=== PATIENT | female | born 1990 | race Caucasian/White ===

== ENCOUNTER 2017-08-04 06:10 | Inpatient (IN) | payer BC ==
[2017-08-04] MEDS ORDERED: LIDOCAINE 1% (PF) 10 MG/ML (30 ML SDV) SQ PRN (06:21)
[2017-08-04] MEDS ORDERED: METHYLERGONOVINE 0.2 MG/ML 1 ML AMP IM PRN (06:21)
[2017-08-04] MEDS ORDERED: CARBOPROST TROMETHAMINE 250 MCG/ML 1 ML AMP IM PRN (06:21)
[2017-08-04] MEDS ORDERED: OXYTOCIN 10 UNIT/ML 1 ML VIAL IM PRN (06:21)
[2017-08-04] MEDS ORDERED: TERBUTALINE 1 MG/ML VIAL SQ PRN (06:21)
[2017-08-04] MEDS: LACTATED RINGERS 1,000 ML IV SCH ×2 (06:23→10:36)
[2017-08-04] MEDS ORDERED: OXYTOCIN 20 UNITS/1000 ML NS 1,000 ML IV SCH ×2 (06:30→12:45)
[2017-08-04 06:34] LABS: Anisocytosis Slight; Basophils % (A) 0 %; CH 19.2; CHCM 30.3; Eosinophils % (A) 0 %; HCT 28.4 % (34.0-46.0); HGB 8.3 gm/dL (11.4-16.0); Hypochromasia Marked; Luc # (Auto) 0.22; Luc % (Auto) 3; Lymphocytes # (A) 1.2 k/uL (1.0-4.8); Lymphocytes % (A) 15 %; MCH 18.7 pg (25.0-35.0); MCHC 29.3 g/dL (31.0-37.0); MCV 63.8 fL (80.0-100.0); Mean Platelet Volume 7.9; Microcytosis Marked; Monocytes # (A) 0.6 k/uL (0-1.0); Monocytes % (A) 7 %; Neutrophils # (A) 6.3 k/uL (1.3-7.7); Neutrophils % (A) 75 %; Poikilocytosis Moderate; RBC 4.46 m/uL (3.80-5.40); RDW 18.1 % (11.5-15.5); WBC 8.4 k/uL (3.8-10.6); WBC (Perox) 8.63
--- NOTE | 2017-08-04 10:26 | P.HPOB ---
History of Present Illness H&P Date: 08/04/17 Chief Complaint: IUP at 39-2/7 weeks, elective induction of labor This is a very pleasant 26-year-old at 39-2/7 weeks that presents for elective induction of labor. She has limited care as she has not been seen prior to her 20 week ultrasound. blood work showed a blood type of A+, rubella immune, hepatitis B surface antigen negative, group beta strep negative. Today on admission she notes good movement, occasional contractions, no loss of fluid. Review of Systems Constitutional: Reports fatigue, Denies fever Respiratory: Denies dyspnea Gastrointestinal: Denies constipation, Denies diarrhea Past Medical History Past Medical History: No Reported History Additional Past Medical History / Comment(s): Obstetric history: First was a spontaneous . History of Any Multi-Drug Resistant Organisms: None Reported Additional Past Surgical History / Comment(s): D&C Past Anesthesia/Blood Transfusion Reactions: No Reported Reaction Past Psychological History: No Psychological Hx Reported Smoking Status: Never smoker Past Alcohol Use History: None Reported Past Drug Use History: None Reported - Past Family History Mother Family Medical History: Thyroid Disorder Medications and Allergies Home Medications Medication Instructions Recorded Confirmed Type Iron 18 mg PO DAILY 08/04/17 08/04/17 History Allergies Allergy/AdvReac Type Severity Reaction Status Date / Time No Known Allergies Allergy Verified 08/04/17 06:20 Exam Osteopathic Statement: *. No significant issues noted on an osteopathic structural exam other than those noted in the History and Physical/Consult. - Vital Signs Vital signs: Vital Signs Temp Pulse Resp BP Pulse Ox 08/04/17 06:25 98.3 F 138 H 16 121/89 99 Intake and Output 08/03/17 08/04/17 08/04/17 22:59 06:59 14:59 Other: Weight 72.575 kg - OBG Physical Exam Abdomen: Gravid, and appropriate for gestational age Abdomen: bowel sounds normal Vulva: both: normal Cervix: 4 cm/70%/-2 station Anus/Rectum: normal perianal skin Results Result Diagrams: 08/04/17 06:25 Abnormal Lab Results - Last 24 Hours (Table) 08/04/17 Range/Units 06:25 Hgb 8.3 L (11.4-16.0) gm/dL Hct 28.4 L (34.0-46.0) % MCV 63.8 L (80.0-100.0) fL MCH 18.7 L (25.0-35.0) pg MCHC 29.3 L (31.0-37.0) g/dL RDW 18.1 H (11.5-15.5) % Assessment and Plan (1) Term Narrative/Plan: Elective induction of labor today, Pitocin per protocol, anticipate spontaneous vaginal delivery. Status: Acute (2) Limited care Status: Acute
[2017-08-04] MEDS ORDERED: SODIUM CHLORIDE 0.9% 100 ML BAG ONE (10:45)
[2017-08-04] MEDS ORDERED: BUPIVACAINE (PF) 0.25% 30 ML VIAL ONE (10:45)
[2017-08-04] MEDS ORDERED: fentaNYL (PF) 50 MCG/ML 5 ML AMP ONE (10:45)
[2017-08-04] MEDS ORDERED: BUPIVACAINE (PF) 0.25% 25 ML, fentaNYL (PF) 200 MCG in SODIUM CHLORIDE 0.9% 71 ML EPIDURAL ONE (11:20)
--- NOTE | 2017-08-04 12:31 | P.PROBDLV ---
Vaginal Delivery Note - . Vaginal Delivery Note: Keiko is a very pleasant 26-year-old 011 at 39-2/7 weeks. Patient presented for elective induction of labor. She was admitted to labor and delivery for Pitocin induction, amniotomy was performed, epidural was placed she progressed quickly to complete and began pushing. Preoperative diagnosis intrauterine at 39-2/7 weeks, limited care Postoperative diagnosis same Procedure spontaneous vaginal delivery, secondary midline vaginal laceration with repair, amniotomy, Pitocin induction of labor Surgeon Cathi Saini DO Estimated blood loss 300 mL Anesthesia epidural Findings male infant in occiput anterior presentation., weight 8-7 at 12:09, Apgars of 9-9 at 1 and 5 minutes respectively. placenta delivered spontaneously without difficulty. Complications: none specimen: placenta mother and tolerated delivery well and are in stable condition.
[2017-08-04] MEDS ORDERED: diphenhydrAMINE 50 MG/ML 1 ML VIAL IVP PRN ×2 (12:37)
[2017-08-04] MEDS ORDERED: LANOLIN CREAM 5 GM TUBE TOPICAL PRN (12:37)
[2017-08-04] MEDS ORDERED: diphenhydrAMINE 25 MG CAP PO PRN (12:37)
[2017-08-04] MEDS ORDERED: Acetaminophen-Codeine 300-30mg TAB PO PRN ×2 (12:37)
[2017-08-04] MEDS ORDERED: WITCH HAZEL 1 EACH MED..PAD TOPICAL PRN (12:37)
[2017-08-04] MEDS ORDERED: ZOLPIDEM 5 MG TAB PO PRN (12:37)
[2017-08-04] MEDS ORDERED: SIMETHICONE 80 MG CHEWABLE PO PRN (12:37)
[2017-08-04] MEDS ORDERED: diphenhydrAMINE 50 MG CAP PO PRN (12:37)
[2017-08-04] MEDS ORDERED: ACETAMINOPHEN TAB 325 MG TAB PO PRN (12:37)
[2017-08-04] MEDS ORDERED: IBUPROFEN 600 MG TAB PO PRN (12:37)
[2017-08-04] MEDS ORDERED: BENZOCAINE/MENTHOL SPRAY 1 GM/SPRAY AEROSOL TOPICAL PRN (12:37)
[2017-08-04] MEDS ORDERED: HYDROCORTISONE 2.5% RECTAL CREAM 30 GM TUBE RECTAL PRN (12:37)
[2017-08-04] MEDS: SENNOSIDES-DOCUSATE SODIUM 1 EACH TAB PO SCH (21:04)
[2017-08-05 08:01] LABS: Anisocytosis Slight; Basophils % (A) 0 %; CH 19.2; CHCM 29.9; Eosinophils % (A) 0 %; HCT 22.9 % (34.0-46.0); HDW 4.15; Hypochromasia Marked; Luc % (Auto) 1; Lymphocytes # (A) 1.2 k/uL (1.0-4.8); Lymphocytes % (A) 12 %; MCH 19.2 pg (25.0-35.0); MCHC 29.6 g/dL (31.0-37.0); MCV 64.7 fL (80.0-100.0); Mean Platelet Volume 7.8; Microcytosis Marked; Monocytes # (A) 0.5 k/uL (0-1.0); Monocytes % (A) 5 %; Neutrophils # (A) 8.3 k/uL (1.3-7.7); Neutrophils % (A) 82 %; Poikilocytosis Moderate; RBC 3.54 m/uL (3.80-5.40); RDW 18.3 % (11.5-15.5); WBC 10.1 k/uL (3.8-10.6); WBC (Perox) 10.51
[2017-08-05 08:20] LABS: HGB 6.8 gm/dL (11.4-16.0)
--- NOTE | 2017-08-05 08:44 | P.PN ---
Subjective Principal diagnosis: Status post spontaneous vaginal delivery, anemia Keiko is status post spontaneous vaginal delivery. She had noted anemia of 8.3 on admission. Today she is doing well she is ambulating and voiding without difficulty. She denies dizziness, lightheadedness. Her lochia is light today. Her pain is controlled with by mouth Motrin Objective - Vital Signs Vital signs: Vital Signs Temp 98.3 F 08/05/17 00:00 Pulse 78 08/05/17 00:00 Resp 16 08/05/17 00:00 BP 115/80 08/05/17 00:00 Pulse Ox 99 08/04/17 06:25 Intake & Output 08/04/17 08/05/17 08/05/17 18:59 06:59 18:59 Other: # Voids 1 1 - Constitutional General appearance: Present: average body habitus, cooperative, no acute distress - Respiratory Respiratory: bilateral: CTA - Genitourinary Genitourinary Comment(s): Uterus is noted to be firm below the umbilicus - Psychiatric Psychiatric: Present: A&O x's 3, appropriate affect - Labs CBC & Chem 7: 08/05/17 06:56 Labs: Abnormal Lab Results - Last 24 Hours (Table) 08/05/17 Range/Units 06:56 RBC 3.54 L (3.80-5.40) m/uL Hgb 6.8 L* D (11.4-16.0) gm/dL Hct 22.9 L (34.0-46.0) % MCV 64.7 L (80.0-100.0) fL MCH 19.2 L (25.0-35.0) pg MCHC 29.6 L (31.0-37.0) g/dL RDW 18.3 H (11.5-15.5) % Neutrophils # 8.3 H (1.3-7.7) k/uL Assessment and Plan (1) Term Narrative/Plan: Keiko is doing well status post normal spontaneous vaginal delivery. We will monitor today given her acute anemia on admission. If she is doing well and her pulse remained stable we will plan discharge later today. With close follow-up with myself in 2 weeks at [facility] [employer] Status: Acute (2) Limited care Status: Acute
[2017-08-05] MEDS: FERROUS SULFATE 325 MG TAB PO SCH ×2 (08:49→20:44)
[2017-08-05] MEDS: SENNOSIDES-DOCUSATE SODIUM 1 EACH TAB PO SCH ×2 (08:50→20:11)
[2017-08-05] MEDS ORDERED: FERROUS SULFATE 325 MG TAB PO SCH (09:00)
[2017-08-05] MEDS: SODIUM CHLORIDE 0.9% 1,000 ML IV SCH ×2 (12:18→22:57)
[2017-08-05 17:48] LABS: Anisocytosis Moderate; Basophils % (A) 0 %; CHCM 31.1; Eosinophils % (A) 0 %; HCT 25.4 % (34.0-46.0); HDW 4.87; HGB 7.7 gm/dL (11.4-16.0); Hypochromasia Marked; Luc # (Auto) 0.11; Luc % (Auto) 1; Lymphocytes # (A) 1.4 k/uL (1.0-4.8); Lymphocytes % (A) 17 %; MCH 20.5 pg (25.0-35.0); MCHC 30.4 g/dL (31.0-37.0); MCV 67.4 fL (80.0-100.0); Mean Platelet Volume 9.8; Microcytosis Marked; Monocytes # (A) 0.5 k/uL (0-1.0); Monocytes % (A) 6 %; Neutrophils # (A) 6.4 k/uL (1.3-7.7); Neutrophils % (A) 76 %; Poikilocytosis Marked; RBC 3.76 m/uL (3.80-5.40); RDW 20.1 % (11.5-15.5); WBC 8.4 k/uL (3.8-10.6); WBC (Perox) 8.82
[2017-08-06] MEDS: SENNOSIDES-DOCUSATE SODIUM 1 EACH TAB PO SCH (09:26)
[2017-08-06] MEDS: FERROUS SULFATE 325 MG TAB PO SCH (09:26)
[2017-08-06 10:19] VITALS: PULSE 102; RESP 18; TEMP 98
[2017-08-06] MEDS ORDERED: LABETALOL 100 MG TAB PO SCH (12:15)
--- NOTE | 2017-08-06 12:17 | P.PNOBGVD ---
Subjective - Subjective Principal diagnosis: status post vaginal delivery, hypertension Interval history: Keiko is a very pleasant 26-year-old 012 that is day #2 from a spontaneous vaginal delivery. She does have a history of preeclampsia with her first delivery and blood pressures were noted to be elevated this morning and into early afternoon 140s 150s over 80s to 90s. She stated she is feeling well she denies headache, visual changes or abdominal pain. she states her lochia is minimal at this point. She did have noted anemia on admission of 8.3 which dropped to 6.7 after delivery tachycardia was noted therefore the decision was made to transfuse one unit of packed red cells. Today her hemoglobin is 7 and she is feeling well. She is ambulating and voiding without dizziness, lightheadedness. She states her pain is controlled and she has taken nothing since yesterday a.m. She is breast-feeding and really wishes to go home today if possible Patient reports: Reports appetite normal, Reports voiding normally, Reports pain well controlled, Reports ambulating normally [place]: doing well Objective - Latest Vital Signs Latest vital signs: Vital Signs Temp Pulse Pulse Resp BP BP Pulse Ox 08/06/17 08:00 98.0 F 102 H 18 154/98 08/06/17 00:00 97.9 F 81 19 151/82 100 08/05/17 16:00 98.1 F 83 16 135/76 99 08/05/17 13:30 98.5 F 94 18 139/85 100 08/05/17 12:53 97.7 F 106 H 18 125/83 100 08/05/17 12:51 97.7 F 106 H 18 125/82 100 08/05/17 12:23 96.4 F L 117 H 18 119/89 100 08/05/17 12:13 96.0 F L 115 H 18 126/95 100 Intake and Output 08/05/17 08/06/17 08/06/17 22:59 06:59 14:59 Other: # Voids 2 - Exam Lungs: bilateral: normal Extremities: Present: normal Abdomen: Present: normal appearance Uterus: Present: firm Comments: below the umbilicus - Labs Labs: Abnormal Lab Results - Last 24 Hours (Table) 08/04/17 08/05/17 Range/Units 06:25 17:35 RBC 3.76 L (3.80-5.40) m/uL Hgb 7.7 L (11.4-16.0) gm/dL Hct 25.4 L (34.0-46.0) % MCV 67.4 L (80.0-100.0) fL MCH 20.5 L (25.0-35.0) pg MCHC 30.4 L (31.0-37.0) g/dL RDW 20.1 H (11.5-15.5) % Crossmatch See Detail Assessment and Plan (1) Term Narrative/Plan: we'll start labetalol 100 mg by mouth twice daily. Since this patient is asymptomatic and without complaints we will monitor for the rest of today and plan for discharge around dinnertime, 5 PM. Patient is going to see me in the office tomorrow morning for close follow-up. Current Visit: Yes Status: Acute Code(s): Z34.80 - ENCOUNTER FOR SUPRVSN OF NORMAL , UNSP TRIMESTER SNOMED Code(s): 30724030 (2) Limited care Current Visit: Yes Status: Acute Code(s): O09.30 - SUPRVSN OF PREG W INSUFFICIENT ANTENAT CARE, UNSP TRIMESTER SNOMED Code(s): 788500202
--- NOTE | 2017-08-06 12:20 | P.DS ---
Providers Date of admission: 08/04/17 06:10 Attending physician: Cathi Saini Primary care physician: Stated None - Discharge Diagnosis(es) (1) Term Keiko is a very pleasant 26-year-old 011 that presented on Friday with desire for elective induction of labor. She did some limited care was seen up till 20 weeks and then was not seen again until 38 weeks of . At that visit she was 4 cm dilated and desired induction at 39 weeks. Decision was made to bring her into the hospital induction was initiated she subsequently had a spontaneous vaginal delivery of a viable male infant. She is without complaints on discharge day day #2. She did have noted anemia on admission of 8.3 and subsequently was transfused 4 hemoglobin of 6 with symptomatology of tachycardia. On day #2 blood pressures were noted to be slightly elevated 140s 150s over 80s to 90s therefore the decision was made to start labetalol 100 mg by mouth twice daily. Patient was comfortable with this plan and wished to be discharged home with close follow-up in the office with myself Current Visit: Yes Status: Acute (2) Limited care Current Visit: Yes Status: Acute Plan - Discharge Summary New Discharge Prescriptions: No Action Iron 18 mg PO DAILY Discharge Medication List Iron 18 mg PO DAILY 08/04/17 [History] Follow up Appointment(s)/Referral(s): Cathi Saini DO [Doctor of Osteopathic Medicine] - 1 Week (tomorrow for BP check) Patient Instructions/Handouts: Vaginal Delivery (DC) Discharge Disposition: HOME SELF-CARE
[2017-08-06 14:12] VITALS: BP 128/91
== END 2017-08-06 15:30 | disposition home or self-care (01) | DRG 775 ==
LOC: 4FBP 06:10
PROVIDERS: ADMIT Obstetrics & Gynecology Obstetrics; ATTEND Obstetrics & Gynecology Obstetrics
PROC: 3E0R3CZ (ICD-10-PCS; principal; 2017-08-04)
PROC: 10907ZC Drainage of Amniotic Fluid, Therapeutic from Products of Conception, Via Natural or Artificial Opening (ICD-10-PCS; principal; 2017-08-04)
PROC: 00HU33Z Insertion of Infusion Device into Spinal Canal, Percutaneous Approach (ICD-10-PCS; principal; 2017-08-04)
PROC: 30233N1 Transfusion of Nonautologous Red Blood Cells into Peripheral Vein, Percutaneous Approach (ICD-10-PCS; principal; 2017-08-04)
PROC: 3E033VJ Introduction of Other Hormone into Peripheral Vein, Percutaneous Approach (ICD-10-PCS; principal; 2017-08-04)
PROC: 10E0XZZ Delivery of Products of Conception, External Approach (ICD-10-PCS; principal; 2017-08-04)
PROC: 0UQGXZZ Repair Vagina, External Approach (ICD-10-PCS; principal; 2017-08-04)
DX: O71.4 Obstetric high vaginal laceration alone (principal); O99.02 Anemia complicating childbirth; Z37.0 Single live birth; Z3A.39 39 weeks gestation of pregnancy; O90.81 Anemia of the puerperium
CPT/HCPCS: 85025; 86850; 86900; 86901; 86920; 88307

== ENCOUNTER 2020-09-13 14:42 | Inpatient (IN) | payer BC ==
[2020-09-13 15:26] LABS: Anisocytosis Slight; Basophils % (A) 0 %; Eosinophils % (A) 0 %; HCT 30.7 % (34.0-46.0); HGB 9.8 gm/dL (11.4-16.0); Hypochromasia Moderate; Lymphocytes # (A) 0.8 k/uL (1.0-4.8); Lymphocytes % (A) 10 %; MCH 23.6 pg (25.0-35.0); MCHC 31.9 g/dL (31.0-37.0); MCV 73.9 fL (80.0-100.0); Mean Platelet Volume 8.1; Microcytosis Slight; Monocytes # (A) 0.5 k/uL (0-1.0); Monocytes % (A) 6 %; Neutrophils # (A) 6.4 k/uL (1.3-7.7); Neutrophils % (A) 81 %; Platelet Count 149 k/uL (150-450); Poikilocytosis Slight; RBC 4.16 m/uL (3.80-5.40); RDW 16.5 % (11.5-15.5); WBC 7.9 k/uL (3.8-10.6)
[2020-09-13 15:36] LABS: Appearance,Urine Clear (Clear); Bilirubin,Urine Negative (Negative); Blood,Urine Negative (Negative); Color,Urine Light Yellow; Glucose,Urine (UA) Negative (Negative); Ketones,Urine Negative (Negative); Leukocyte Esterase,Urine Negative (Negative); Nitrite,Urine Negative (Negative); Protein,Urine Negative (Negative); Specific Gravity,Urine 1.005 (1.001-1.035); Urobilinogen,Urine <2.0 mg/dL (<2.0)
[2020-09-13 15:38] LABS: ALT 12 U/L (4-34); AST 19 U/L (14-36); African American GFR (CKD) >90 (>60 ml/min/1.73 sqM); Blood Urea Nitrogen 6 mg/dL (7-17); LDH 388 U/L (313-618); Non-African American GFR(CKD) >90 (>60 ml/min/1.73 sqM); Uric Acid 3.8 mg/dL (3.7-7.4)
--- NOTE | 2020-09-13 16:22 | P.HPOB ---
History of Present Illness H&P Date: 09/13/20 Chief Complaint: IUP at 36 and 5/sevenths weeks, chronic hypertension this is a 29-year-old 4 para 2011 at 36-5/7 weeks that was seen in the office today blood pressures were noted to be elevated 140s over 90s. Patient has a history of chronic hypertension, and preeclampsia with prior pregnancies. Patient has been taking labetalol 100mg bid. Patient had ultrasound today in the office revealing good growth weight of 8 lbs. 9 oz. and normal amniotic fluid index. Patient has noted good movement. She notes occasional contractions. On cervical exam she was noted to be 470 m dilated. Patient denied headache or abdominal pain in the office toda y. Patient was sent to labor and delivery for continued monitoring. Blood pressures continued to be elevated 140s over 90s. On bloodwork patient has a blood type of A+, rubella status immune, RPR nonreactive, hepatitis B surface antigen negative, HIV negative. Group beta strep screen was plan done today. Patient is known gestational anemia with her last hemoglobin on 08/22. Review of Systems Constitutional: Denies chills, Denies fatigue, Denies fever Ears, nose, mouth and throat: Denies headache Cardiovascular: Reports leg edema Respiratory: Denies dyspnea Gastrointestinal: Denies nausea, Denies vomiting Genitourinary: Reports pelvic pain Past Medical History Past Medical History: No Reported History Additional Past Medical History / Comment(s): Obstetric history: First was a spontaneous . History of Any Multi-Drug Resistant Organisms: None Reported Additional Past Surgical History / Comment(s): D&C Past Anesthesia/Blood Transfusion Reactions: No Reported Reaction Past Psychological History: No Psychological Hx Reported Past Alcohol Use History: None Reported Past Drug Use History: None Reported - Past Family History Mother Family Medical History: Thyroid Disorder Medications and Allergies Home Medications Medication Instructions Recorded Confirmed Type Iron 18 mg PO DAILY 08/04/17 08/04/17 History Allergies Allergy/AdvReac Type Severity Reaction Status Date / Time No Known Allergies Allergy Verified 08/04/17 06:20 Exam Osteopathic Statement: *. No significant issues noted on an osteopathic structural exam other than those noted in the History and Physical/Consult. Intake and Output 09/13/20 09/13/20 09/13/20 06:59 14:59 22:59 Other: Weight 83.915 kg targeted physical exam is performed on this date, in general this a well- nourished well-developed female in no acute distress, breathing is noted to be nonlabored, heart has regular rate and rhythm, abdomen is gravid and appropriate for gestational age on cervical exam she is 4/70/-2 heart tones returned be category 1 and she is alma irregularly. Results Result Diagrams: 09/13/20 15:06 09/13/20 15:06 Abnormal Lab Results - Last 24 Hours (Table) 09/13/20 09/13/20 Range/Units 15:06 15:06 Hgb 9.8 L (11.4-16.0) gm/dL Hct 30.7 L (34.0-46.0) % MCV 73.9 L (80.0-100.0) fL MCH 23.6 L (25.0-35.0) pg RDW 16.5 H (11.5-15.5) % Plt Count 149 L (150-450) k/uL Lymphocytes # 0.8 L (1.0-4.8) k/uL BUN 6 L (7-17) mg/dL Creatinine 0.45 L (0.52-1.04) mg/dL Assessment and Plan (1) 36 weeks gestation of Current Visit: Yes Status: Acute Code(s): Z3A.36 - 36 WEEKS GESTATION OF SNOMED Code(s): 34461562 (2) HTN in , chronic Current Visit: Yes Status: Acute Code(s): O10.919 - UNSP PRE-EXISTING HTN COMP , UNSP TRIMESTER SNOMED Code(s): 82145558 Plan: this 29-year-old 4 para 2011 with known chronic hypertension at 36-5/7 weeks presented for routine care at the office today. Patient's blood pressures noted to be elevated 140s over 90s. Patient was then sent to the hospital for serial blood pressures which continued to be elevated 130s to 140s over 90s. Patient denied signs and symptoms of preeclampsia. Given her chronic hypertension concern for superimposed preeclampsia was noted, patient was admitted to labor and delivery for induction of labor. Pitocin induction of labor was begun. Will perform amniotomy me when appropriate, patient does desire epidural for pain management. Anticipate spontaneous vaginal delivery.
[2020-09-13] MEDS ORDERED: AMPICILLIN 2,000 MG in SODIUM CHLORIDE 0.9% 100 ML IVPB STA (16:33)
[2020-09-13] MEDS ORDERED: ROPIVACAINE 100 MG, fentaNYL (PF) 200 MCG in SODIUM CHLORIDE 0.9% 76 ML EPIDURAL ONE (18:41)
[2020-09-13] MEDS ORDERED: CARBOPROST TROMETHAMINE 250 MCG/ML 1 ML AMP IM PRN (19:11)
[2020-09-13] MEDS ORDERED: METHYLERGONOVINE 0.2 MG/ML 1 ML AMP IM PRN (19:11)
[2020-09-13] MEDS ORDERED: LIDOCAINE 0.5% (PF) 5 MG/ML (50 ML SDV) SQ PRN (19:11)
[2020-09-13] MEDS ORDERED: TERBUTALINE 1 MG/ML VIAL SQ PRN (19:11)
[2020-09-13] MEDS ORDERED: OXYTOCIN 10 UNIT/ML 1 ML VIAL IM PRN (19:11)
[2020-09-13] MEDS ORDERED: LACTATED RINGERS 1,000 ML IV SCH (19:15)
[2020-09-13] MEDS ORDERED: OXYTOCIN 30 UNITS/500 ML NS 30 UNIT in SALINE 1 500ML.BAG IV SCH (19:15)
[2020-09-13] MEDS ORDERED: AMPICILLIN 1,000 MG in SODIUM CHLORIDE 0.9% 50 ML IVPB SCH (20:00)
[2020-09-13] MEDS: OXYTOCIN 20 UNITS/1000 ML NS 1,000 ML IV SCH ×2 (20:31→21:16)
[2020-09-13] MEDS ORDERED: SIMETHICONE 80 MG CHEWABLE PO PRN (20:47)
[2020-09-13] MEDS ORDERED: LANOLIN CREAM 5 GM TUBE TOPICAL PRN (20:47)
[2020-09-13] MEDS ORDERED: diphenhydrAMINE 50 MG/ML 1 ML VIAL IVP PRN ×2 (20:47)
[2020-09-13] MEDS ORDERED: BENZOCAINE/MENTHOL SPRAY 1 GM/SPRAY AEROSOL TOPICAL PRN (20:47)
[2020-09-13] MEDS ORDERED: HYDROCORTISONE 2.5% RECTAL CREAM 30 GM TUBE RECTAL PRN (20:47)
[2020-09-13] MEDS ORDERED: ACETAMINOPHEN TAB 325 MG TAB PO PRN (20:47)
[2020-09-13] MEDS ORDERED: ZOLPIDEM 5 MG TAB PO PRN (20:47)
[2020-09-13] MEDS ORDERED: diphenhydrAMINE 25 MG CAP PO PRN (20:47)
[2020-09-13] MEDS ORDERED: diphenhydrAMINE 50 MG CAP PO PRN (20:47)
--- NOTE | 2020-09-13 20:51 | P.PROBDLV ---
Vaginal Delivery Note - . Vaginal Delivery Note: -year-old 4 para 2013 at 36-5/7 weeks that presents to labor and delivery for induction of labor secondary to worsening chronic hypertension despite being on labetalol. Patient has a history of preeclampsia and plan was to deliver at 37 weeks secondary to this. Patient was seen in the office blood pressures 140s over 90s patient was sent to the hospital for continued monitoring continue blood pressures 144/97. Decision was made for induction secondary to worsening hypertension. Patient denied signs or symptoms of preeclampsia at that time. Patient was admitted to labor and delivery and Pitocin induction of labor was begun. Preeclampsia labs were drawn and found to be negative. Patient underwent amniotomy and clear fluid was obtained. Patient became uncomfortable and did request epidural placement. Soon after epidural was placed in patient was noted to be completely dilated and began pushing. Patient had a normal spontaneous vaginal delivery of viable male with a loose nuchal that was delivered through at 2027, weight of 7 lbs. 5 oz. and Apgars of 9 and 9 at one and 5 minutes respectively. After two-minute delayed the umbilical cord was doubly clamped and cut and the infant was handed off to the maternal abdomen. Spontaneous cry was noted at . The placenta was then delivered spontaneously intact with a three-vessel cord. On section the patient's vaginal vault a second-degree midline laceration was noted. This was repaired in the usual fashion with 3-0 Rapide. Hemostasis was appreciated over the laceration. The uterus was noted to be firm and below the umbilicus at this time. A red rubber catheter was used to drain the bladder of 150 mL of clear yellow urine. A rectal exam was performed and found to be normal in nature. All counts were noted to be correct 2 Issue and tolerated delivery well
[2020-09-13 23:13] LABS: Protein/Creatinine Ratio,Urine 0.504
[2020-09-13] MEDS: LABETALOL 100 MG TAB PO SCH (23:53)
[2020-09-14] MEDS: IBUPROFEN 600 MG TAB PO PRN ×2 (04:47→20:18)
[2020-09-14] MEDS: SENNOSIDES-DOCUSATE SODIUM 1 EACH TAB PO SCH ×2 (07:51→21:51)
[2020-09-14] MEDS: FERROUS SULFATE 325 MG TAB PO SCH (07:52)
[2020-09-14] MEDS: LABETALOL 100 MG TAB PO SCH ×2 (07:55→15:25)
--- NOTE | 2020-09-14 08:41 | P.DS ---
Providers Date of admission: 09/13/20 15:50 Expected date of discharge: 09/14/20 Attending physician: Cathi Saini Primary care physician: Stated None - Discharge Diagnosis(es) (1) 36 weeks gestation of Current Visit: Yes Status: Acute (2) HTN in , chronic Current Visit: Yes Status: Acute (3) Status post vaginal delivery Current Visit: Yes Status: Acute (4) Obstetric vaginal laceration with second degree perineal laceration Current Visit: Yes Status: Acute Hospital Course: This is a 29-year-old 012 that presented to the office for routine visit at 36-5/7 weeks with noted elevated blood pressures 140s over high 90s. Patient has a known history of chronic hypertension and preeclampsia in prior pregnancies. Patient has been taking labetalol consistently through this . Patient's blood pressures have been increasing over the last few weeks. Plan was induction of labor at 37 weeks secondary to chronic hypertension and history of preeclampsia. Given patient's elevated blood pressures patient was sent to labor and delivery for evaluation. Blood pressures continued to be elevated 144/97 1 labor and delivery. Decision was made for induction of labor secondary to chronic hypertension with worsening blood pressures. Patient was admitted to labor and delivery Pitocin induction of labor was begun. Once appropriate amniotomy was performed and clear fluid was obtained. Patient soon became uncomfortable requested epidural placement. Epidural was placed without difficulty by the anesthesia department. Soon afterwards patient was noted to be complete she began pushing and had a normal spontaneous vaginal delivery of a viable male infant with a loose nuchal cord that was delivered through at 2027. Weight was noted to be 7 lbs. 5 oz. with Apgars of 8 and 9 at one and 5 minutes respectively. Patient did sustain a second-degree midline laceration which was repaired in the usual fashion with 3- 0 Rapide. Patient's course has been uneventful. On this postop day #1 she is ambulating and voiding without difficulty. She is tolerating a regular diet without nausea or vomiting. She states her lochia is minimal. We'll plan discharge home at 24 hours. Patient Condition at Discharge: Good Plan - Discharge Summary New Discharge Prescriptions: No Action Iron 18 mg PO DAILY Discharge Medication List Iron 18 mg PO DAILY 08/04/17 [History] Follow up Appointment(s)/Referral(s): Cathi Saini DO [Doctor of Osteopathic Medicine] - 4 Weeks Patient Instructions/Handouts: Vaginal Delivery (GEN), Vaginal Delivery (DC) Activity/Diet/Wound Care/Special Instructions: No tub baths or intercourse until 6 weeks . Patient is to continue to follow blood pressures at home. Labetalol 100 mg twice a day for blood pressures 140s over 90s. Discharge Disposition: HOME SELF-CARE
[2020-09-14 09:39] LABS: Anisocytosis Slight; Basophils % (A) 0 %; Eosinophils % (A) 0 %; HCT 27.9 % (34.0-46.0); HGB 8.8 gm/dL (11.4-16.0); Hypochromasia Moderate; Lymphocytes # (A) 0.9 k/uL (1.0-4.8); Lymphocytes % (A) 8 %; MCH 23.4 pg (25.0-35.0); MCHC 31.5 g/dL (31.0-37.0); MCV 74.4 fL (80.0-100.0); Mean Platelet Volume 9.2; Microcytosis Slight; Monocytes # (A) 0.6 k/uL (0-1.0); Monocytes % (A) 6 %; Neutrophils # (A) 9.4 k/uL (1.3-7.7); Neutrophils % (A) 85 %; Platelet Count 160 k/uL (150-450); Poikilocytosis Slight; RBC 3.75 m/uL (3.80-5.40); RDW 16.8 % (11.5-15.5)
[2020-09-15 01:20] VITALS: RESP 16; TEMP 97.9
[2020-09-15] MEDS: LABETALOL 100 MG TAB PO SCH (08:04)
[2020-09-15] MEDS: SENNOSIDES-DOCUSATE SODIUM 1 EACH TAB PO SCH (08:04)
[2020-09-15 09:16] VITALS: BP 130/84; PULSE 94
[2020-09-15] MEDS: FERROUS SULFATE 325 MG TAB PO SCH (09:33)
--- NOTE | 2020-09-15 09:41 | P.PNOBGVD ---
Subjective - Subjective Principal diagnosis: PPD 2 , chronic HTN Interval history: Patient has done well . On this day #2 she is involuting and voiding without difficulty. She states she feels well. We did restart her labetalol 100 mg twice daily for blood pressures 140s over 90s. Patient denies symptoms of preeclampsia. She is breast-feeding without difficulty. She states her lochia is moderate. She feels ready for discharge home. Patient reports: Reports appetite normal, Reports voiding normally, Reports pain well controlled, Reports ambulating normally [place]: doing well Objective - Latest Vital Signs Latest vital signs: Vital Signs Temp Pulse Resp BP Pulse Ox 09/15/20 09:15 94 130/84 09/15/20 08:00 97.9 F 84 16 151/97 09/15/20 00:30 97.9 F 77 16 137/87 98 09/14/20 20:00 98.3 F 93 18 140/86 99 09/14/20 15:36 97.9 F 70 17 140/86 09/14/20 12:00 97.7 F 85 16 142/78 100 - Exam Extremities: Present: normal, edema Abdomen: Present: normal appearance, soft Uterus: Present: normal, firm - Labs Labs: Abnormal Lab Results - Last 24 Hours (Table) 09/14/20 Range/Units 09:10 WBC 11.0 H (3.8-10.6) k/uL RBC 3.75 L (3.80-5.40) m/uL Hgb 8.8 L (11.4-16.0) gm/dL Hct 27.9 L (34.0-46.0) % MCV 74.4 L (80.0-100.0) fL MCH 23.4 L (25.0-35.0) pg RDW 16.8 H (11.5-15.5) % Neutrophils # 9.4 H (1.3-7.7) k/uL Lymphocytes # 0.9 L (1.0-4.8) k/uL Assessment and Plan (1) 36 weeks gestation of Current Visit: Yes Status: Acute Code(s): Z3A.36 - 36 WEEKS GESTATION OF SNOMED Code(s): 20441678 (2) HTN in , chronic Current Visit: Yes Status: Acute Code(s): O10.919 - UNSP PRE-EXISTING HTN COMP , UNSP TRIMESTER SNOMED Code(s): 62605709 (3) Status post vaginal delivery Current Visit: Yes Status: Acute Code(s): ZZW6503 - SNOMED Code(s): 633868638 (4) Obstetric vaginal laceration with second degree perineal laceration Current Visit: Yes Status: Acute Code(s): O70.1 - SECOND DEGREE PERINEAL LACERATION DURING DELIVERY SNOMED Code(s): 633069986 Plan: 29-year-old that presented to labor and delivery at 36-5/7 weeks in the office with noted elevated pressures. Patient has a history of chronic hypertension and pre-[place] with prior deliveries. Patient was admitted and underwent induction of labor subsequently having a normal spontaneous vaginal delivery of viable male infant. Patient will be discharged home today on this day #2. She is feeling well and will continue labetalol 100 mg twice daily. She is asked to follow-up in 1 week for blood pressure check. She states understanding and will schedule appointment. Preeclampsia precautions are reviewed with patient. Given her history of chronic hypertension she states she is understanding and will call with any further concerns.
== END 2020-09-15 10:00 | disposition home or self-care (01) | DRG 807 ==
LOC: FBPOP 14:42 → 4FBP 15:50
PROVIDERS: ADMIT Obstetrics & Gynecology Obstetrics; ATTEND Obstetrics & Gynecology Obstetrics
PROC: 10907ZC Drainage of Amniotic Fluid, Therapeutic from Products of Conception, Via Natural or Artificial Opening (ICD-10-PCS; principal; 2020-09-13)
PROC: 3E0R3NZ Introduction of Analgesics, Hypnotics, Sedatives into Spinal Canal, Percutaneous Approach (ICD-10-PCS; principal; 2020-09-13)
PROC: 00HU33Z Insertion of Infusion Device into Spinal Canal, Percutaneous Approach (ICD-10-PCS; principal; 2020-09-13)
PROC: 0KQM0ZZ Repair Perineum Muscle, Open Approach (ICD-10-PCS; principal; 2020-09-13)
PROC: 10E0XZZ Delivery of Products of Conception, External Approach (ICD-10-PCS; principal; 2020-09-13)
PROC: 3E033VJ Introduction of Other Hormone into Peripheral Vein, Percutaneous Approach (ICD-10-PCS; principal; 2020-09-13)
DX: O10.92 Unspecified pre-existing hypertension complicating childbirth (principal); Z37.0 Single live birth; O69.81X0 Labor and delivery complicated by cord around neck, without compression, not applicable or unspecified; O70.1 Second degree perineal laceration during delivery; O70.0 First degree perineal laceration during delivery; Z3A.37 37 weeks gestation of pregnancy; Z83.49 Family history of other endocrine, nutritional and metabolic diseases
CPT/HCPCS: 59025; 81003; 82565; 82570; 83615; 84156; 84450; 84460; 84520; 84550; 85025; 86850; 86900; 86901; 99215

== ENCOUNTER 2023-12-19 10:57 | Outpatient (CLI) | payer BC, OTHER ==
[2023-12-19 12:15] LABS: Appearance,Urine Clear (Clear); Bacteria,Urine Occasional /hpf; Bilirubin,Urine Negative (Negative); Blood,Urine Negative (Negative); Color,Urine Yellow; Glucose,Urine (UA) Negative (Negative); Ketones,Urine Negative (Negative); Leukocyte Esterase,Urine Small (Negative); Mucus,Urine Many /hpf; Nitrite,Urine Negative (Negative); PH, Urine 7.5 (5.0-8.0); Protein,Urine Trace (Negative); Specific Gravity,Urine 1.019 (1.001-1.035); Squamous Epithelial Cell,Urine 4 /hpf (0-4); Urobilinogen,Urine <2.0 mg/dL (<2.0); WBC,Urine 8 /hpf (0-5)
[2023-12-19 13:11] VITALS: BP 131/82; PULSE 101; RESP 16; TEMP 97
--- NOTE | 2023-12-24 14:03 | P.MSEPDOC ---
Presenting Problems - Arrival Data Date of Arrival on Unit: 12/19/23 Time of Arrival on Unit: 10:57 Mode of Transport: Ambulatory - Complaint OB-Reason for Admission/Chief Complaint: PIH Medical History - Information : 4 Para: 3 Number of Living Children: 3 - Gestational Age Gestational Age by MICHELET (wks/days): 34 Weeks and 5 Days - History Complications: Preeclampsia Review of Systems - Review of Systems Constitutional: No problems Breast: No problems ENT: No problems Cardiovascular: No problems Respiratory: No problems Gastrointestinal: No problems Genitourinary: No problems Musculoskeletal: No problems Neurological: No problems Skin: No problems Vital Signs - Temperature Temperature: 97.0 F Temperature Source: Temporal Artery Scan - Pulse Right Sitting Brachial Pulse Rate: 101 Pulse Assessment Method: Automatic Cuff - Respirations Respiratory Rate: 16 Oxygen Delivery Method: Room Air O2 Sat by Pulse Oximetry: 100 - Blood Pressure Right Arm Sitting Blood Pressure: 131/82 Blood Pressure Mean: 98 Blood Pressure Source: Automatic Cuff Medical Screen Scoring - Assessment - Baby A Baseline FHR: 125 Heart Rate - NICHD Category: Category I (Normal) NST: Reactive Physician Notification - Physician Notified Physician Notified Date: 12/19/23 Physician Notified Time: 11:37 Physician: Cathi Saini New Order Received: Yes Maternal Triage Index - Maternal Triage Index Presenting for scheduled procedure w/no complaint: No - Stat/Priority 1 Stat Priority 1: No - Urgent/Priority 2 Urgent Priority 2: No - Prompt/Priority 3 Prompt Priority 3: Yes Criteria Met for Priority 3: elevated home BP's, in for evaluation Disposition - Disposition OB Disposition: Discharge to home Discharge Date: 12/19/23 Discharge Time: 12:50 I agree with the RN Medical Screening Exam: Yes Case reviewed; plan agreed upon as documented in EMR&OBIX.: Yes Diagnosis: RELATED CONDITIONS, UNSPECIFIED, THIRD TRIMESTER
== END 2023-12-19 12:50 | disposition home or self-care (01) ==
LOC: FBPOP 10:57
PROVIDERS: ATTEND Obstetrics & Gynecology Obstetrics
DX: O13.3 Gestational [pregnancy-induced] hypertension without significant proteinuria, third trimester (principal); O14.93 Unspecified pre-eclampsia, third trimester; Z3A.34 34 weeks gestation of pregnancy
CPT/HCPCS: 59025; 81001; 99215

== ENCOUNTER 2024-01-07 06:00 | Inpatient (IN) | payer BC, OTHER ==
[2024-01-07] MEDS ORDERED: miSOPROStoL 200 MCG TAB PO PRN (06:14)
[2024-01-07] MEDS ORDERED: CARBOPROST TROMETHAMINE 250 MCG/ML 1 ML AMP IM PRN (06:14)
[2024-01-07] MEDS ORDERED: TERBUTALINE 1 MG/ML VIAL SQ PRN (06:14)
[2024-01-07] MEDS ORDERED: OXYTOCIN 10 UNIT/ML 1 ML VIAL IM PRN (06:14)
[2024-01-07] MEDS ORDERED: TRANEXAMIC 1,000 MG/100ML-NACL 1,000 MG in EMPTY BAG 1 BAG IV PRN (06:14)
[2024-01-07] MEDS ORDERED: METHYLERGONOVINE 0.2 MG/ML 1 ML AMP IM PRN (06:14)
[2024-01-07] MEDS: LACTATED RINGERS 1,000 ML IV SCH (06:26)
[2024-01-07] MEDS: OXYTOCIN 30 UNITS/500 ML NS 30 UNIT in SALINE 1 500ML.BAG IV SCH (06:36)
[2024-01-07 06:42] LABS: Basophils % (A) 0 %; Eosinophils % (A) 1 %; HCT 30.1 % (34.0-46.0); HGB 9.8 gm/dL (11.4-16.0); Hypochromasia Moderate; Lymphocytes # (A) 0.9 k/uL (1.0-4.8); Lymphocytes % (A) 13 %; MCH 24.5 pg (25.0-35.0); MCHC 32.4 g/dL (31.0-37.0); MCV 75.7 fL (80.0-100.0); Mean Platelet Volume 8.6; Microcytosis Slight; Monocytes # (A) 0.4 k/uL (0-1.0); Monocytes % (A) 7 %; Neutrophils % (A) 78 %; Platelet Count 167 k/uL (150-450); Poikilocytosis Slight; RBC 3.98 m/uL (3.80-5.40); RDW 14.5 % (11.5-15.5); WBC 6.4 k/uL (3.8-10.6)
[2024-01-07] MEDS ORDERED: ROPIVACAINE 5 MG/ML 30 ML VIAL ONE (08:57)
[2024-01-07] MEDS ORDERED: fentaNYL (PF) 50 MCG/ML 5 ML AMP ONE (08:57)
[2024-01-07] MEDS ORDERED: SODIUM CHLORIDE 0.9% 250 ML BAG ONE (08:57)
[2024-01-07] MEDS ORDERED: SIMETHICONE 80 MG CHEWABLE PO PRN (12:22)
[2024-01-07] MEDS ORDERED: LANOLIN CREAM 1 GM TUBE TOPICAL PRN (12:22)
[2024-01-07] MEDS ORDERED: ZOLPIDEM 5 MG TAB PO PRN (12:22)
[2024-01-07] MEDS ORDERED: diphenhydrAMINE 50 MG/ML 1 ML VIAL IVP PRN ×2 (12:22)
[2024-01-07] MEDS ORDERED: diphenhydrAMINE 50 MG CAP PO PRN (12:22)
[2024-01-07] MEDS ORDERED: HYDROCORTISONE 2.5% RECTAL CREAM 30 GM TUBE RECTAL PRN (12:22)
[2024-01-07] MEDS ORDERED: diphenhydrAMINE 25 MG CAP PO PRN (12:22)
[2024-01-07] MEDS ORDERED: OXYTOCIN 30 UNITS/500 ML NS 30 UNIT in SALINE 1 500ML.BAG IV SCH (12:30)
[2024-01-07] MEDS: IBUPROFEN 600 MG TAB PO PRN (12:51)
[2024-01-07] MEDS: LIDOCAINE 0.5% (PF) 5 MG/ML (50 ML SDV) SQ PRN (12:52)
[2024-01-07] MEDS: BENZOCAINE/MENTHOL SPRAY 1 GM/SPRAY AEROSOL TOPICAL PRN (12:53)
--- NOTE | 2024-01-07 13:05 | P.HPOB ---
History of Present Illness H&P Date: 01/07/24 Chief Complaint: IUP at 37-3/7 weeks, gestational hypertension 33-year-old at 37-2/7 weeks that presents to labor and delivery for induction of labor secondary to gestational hypertension. Patient has noted increasing blood pressures despite labetalol. Patient has a prior history of gestational hypertension with her previous pregnancies. Patient denies signs or symptoms of preeclampsia. In addition patient has gestational anemia for which she has been taking iron sulfate patient notes good movement denies vaginal bleeding or loss of fluid. Patient does note increased vaginal pressure. On blood work this patient is a positive of a positive, rubella status immune, hepatitis B surface and negative, HIV negative, RPR is nonreactive, group B strep culture is negative. Review of Systems Constitutional: Denies chills, Denies fatigue, Denies fever Ears, nose, mouth and throat: Denies headache Cardiovascular: Denies leg edema Respiratory: Denies dyspnea Gastrointestinal: Denies nausea, Denies vomiting Genitourinary: Reports Past Medical History Past Medical History: No Reported History Additional Past Medical History / Comment(s): Obstetric history: First was a spontaneous . hx of preeclampsia History of Any Multi-Drug Resistant Organisms: None Reported Additional Past Surgical History / Comment(s): D&C Past Anesthesia/Blood Transfusion Reactions: No Reported Reaction Past Psychological History: No Psychological Hx Reported Smoking Status: Never smoker Past Alcohol Use History: None Reported Past Drug Use History: None Reported - Past Family History Mother Family Medical History: No Reported History, Thyroid Disorder Medications and Allergies Home Medications Medication Instructions Recorded Confirmed Type Iron 18 mg PO DAILY 08/04/17 01/07/24 History Labetalol [Trandate] 100 mg PO BID 12/19/23 01/07/24 History Pnv,Calcium 72/Iron/Folic Acid 1 tab PO DAILY 12/19/23 01/07/24 History [Westab Plus Tablet] Allergies Allergy/AdvReac Type Severity Reaction Status Date / Time No Known Allergies Allergy Verified 12/19/23 11:11 Exam Osteopathic Statement: *. No significant issues noted on an osteopathic structural exam other than those noted in the History and Physical/Consult. Vital Signs Temp Pulse Resp BP Pulse Ox 01/07/24 12:26 80 17 139/86 01/07/24 06:13 97.4 F L 115 H 16 115/73 99 Intake and Output 01/06/24 01/07/24 01/07/24 22:59 06:59 14:59 Intake Total 11.133 Output Total 550 Balance -538.867 Intake: Intake, IV Titration 11.133 Amount Oxytocin 30 Units/500 ml 11.133 Ns 30 unit In Saline 1 500ml.bag @ Per Protocol IV .Q0M [facility] Rx#:[id number] Output: Urine 450 Straight 450 Output, Quantitative 100 Blood Loss Other: Weight 83.007 kg Targeted physical exam was performed in the state General is well-nourished well-developed female in no acute distress, breathing is nonlabored, heart is regular rate rhythm, abdomen is gravid and appropriate for gestational age, on cervical exam she is 5/50/-2 station amniotomy was performed and clear fluid was obtained. heart tones are noted to be category 1 and she is alma every 3 minutes. Results Result Diagrams: 01/07/24 06:20 Abnormal Lab Results - Last 24 Hours (Table) 01/07/24 Range/Units 06:20 Hgb 9.8 L (11.4-16.0) gm/dL Hct 30.1 L (34.0-46.0) % MCV 75.7 L (80.0-100.0) fL MCH 24.5 L (25.0-35.0) pg Lymphocytes # 0.9 L (1.0-4.8) k/uL Assessment and Plan (1) 37 or more weeks gestation of Current Visit: Yes Status: Acute Code(s): [id number] - SNOMED Code(s): 38911429 (2) Gestational HTN Current Visit: Yes Status: Acute Code(s): O13.9 - GESTATIONAL HTN W/O SIGNIFICANT PROTEINURIA, UNSP TRIMESTER SNOMED Code(s): 89558737 Plan: 33-year-old -1-1-3 that presented at 37-2/7 weeks for induction of labor secondary to gestational hypertension. Patient is admitted to labor and delivery and Pitocin induction of labor was begun per hospital protocol. Amniotomy was performed and clear fluid was obtained. Patient is noted to be advancing dilated and desires epidural, anesthesia will be notified. Anticipate spontaneous vaginal delivery later this morning.
--- NOTE | 2024-01-07 13:07 | P.PROBDLV ---
Vaginal Delivery Note - . Vaginal Delivery Note: 33-year-old -1-1-3 at 37-2/7 weeks that presents to labor and delivery for induction of labor secondary to gestational hypertension. Patient is admitted and Pitocin induction of labor was begun per hospital protocol. Patient underwent amniotomy clear fluid was obtained. Patient requested epidural and epidural was placed without difficulty by the anesthesia department. Patient patient made progress through labor eventually noted to be completely dilated. Once completely dilated patient began pushing and had a normal spontaneous vaginal delivery of a viable male at 1208, weight of 7 pounds 6 ounces, Apgars of 9 and 10 at 1 and 5 minutes respectively. After 2-minute delay the umbilical cord was doubly clamped and cut. Placenta was delivered spontaneously intact with a three-vessel cord being noted. On inspection the patient's vaginal vault the second-degree midline laceration was appreciated and repaired in the usual fashion with 3-0 Rapide. Hemostasis was noted after repair. Uterus was noted to be firm and below the umbilicus. Bladder was drained after delivery of the placenta for approximately 200 cc of clear yellow urine. All counts were to be correct x 2. Patient and infant tolerated delivery well and are resting comfortably.
[2024-01-07] MEDS: SENNOSIDES-DOCUSATE SODIUM 1 EACH TAB PO SCH (21:36)
[2024-01-07] MEDS: LABETALOL 100 MG TAB PO SCH (21:41)
[2024-01-08 07:16] LABS: Basophils % (A) 0 %; Eosinophils % (A) 1 %; HCT 27.1 % (34.0-46.0); HGB 8.8 gm/dL (11.4-16.0); Hypochromasia Moderate; Lymphocytes # (A) 1.2 k/uL (1.0-4.8); Lymphocytes % (A) 13 %; MCH 24.4 pg (25.0-35.0); MCHC 32.3 g/dL (31.0-37.0); MCV 75.4 fL (80.0-100.0); Mean Platelet Volume 9.8; Microcytosis Slight; Monocytes # (A) 0.6 k/uL (0-1.0); Monocytes % (A) 7 %; Neutrophils # (A) 7.3 k/uL (1.3-7.7); Neutrophils % (A) 78 %; Platelet Count 169 k/uL (150-450); Poikilocytosis Slight; RBC 3.59 m/uL (3.80-5.40); RDW 14.4 % (11.5-15.5); WBC 9.3 k/uL (3.8-10.6)
--- NOTE | 2024-01-08 13:01 | P.PNOBGVD ---
Subjective - Subjective Principal diagnosis: day #1 Interval history: Patient is feeling well on this day #1. Blood pressures have been normal through the night. Patient just had an elevated 150/90 blood pressure. Patient denies signs or symptoms of preeclampsia. Lochia is minimal to moderate. Patient reports: Reports appetite normal, Reports voiding normally, Reports pain well controlled, Reports ambulating normally : doing well Objective - Latest Vital Signs Latest vital signs: Vital Signs Temp Pulse Resp BP Pulse Ox 01/08/24 07:45 97.6 F 78 18 133/85 97 01/08/24 00:00 98.7 F 88 18 119/73 99 01/07/24 23:49 59 L 16 119/73 97 01/07/24 21:00 88 18 126/88 01/07/24 15:48 98.1 F 85 17 127/78 01/07/24 14:26 81 17 129/77 01/07/24 14:11 77 17 146/89 01/07/24 13:56 72 16 135/82 01/07/24 13:41 76 17 130/85 01/07/24 13:26 69 17 131/84 01/07/24 13:11 77 17 137/85 Intake and Output 01/07/24 01/08/24 01/08/24 22:59 06:59 14:59 Intake Total 891.333 Balance 891.333 Intake: Intake, IV Titration 291.333 Amount Oxytocin 30 Units/500 ml 291.333 Ns 30 unit In Saline 1 500ml.bag @ Per Protocol IV .Q0M [facility] Rx#:[id number] Oral 600 Other: Voiding Method Toilet # Voids 1 1 - Exam Extremities: Present: normal, edema Abdomen: Present: normal appearance, soft Uterus: Present: normal, firm - Labs Labs: Abnormal Lab Results - Last 24 Hours (Table) 01/08/24 Range/Units 06:59 RBC 3.59 L (3.80-5.40) m/uL Hgb 8.8 L (11.4-16.0) gm/dL Hct 27.1 L (34.0-46.0) % MCV 75.4 L (80.0-100.0) fL MCH 24.4 L (25.0-35.0) pg Assessment and Plan (1) 37 or more weeks gestation of Current Visit: Yes Status: Acute Code(s): [id number] - SNOMED Code(s): 59464425 (2) Gestational HTN Current Visit: Yes Status: Acute Code(s): O13.9 - GESTATIONAL HTN W/O SIGN IFICANT PROTEINURIA, UNSP TRIMESTER SNOMED Code(s): 83150105 (3) Obstetric vaginal laceration with second degree perineal laceration Current Visit: No Status: Acute Code(s): O70.1 - SECOND DEGREE PERINEAL LACERATION DURING DELIVERY SNOMED Code(s): 315966429 (4) Status post vaginal delivery Current Visit: No Status: Acute Code(s): GBW1629 - SNOMED Code(s): 696662529 Plan: 33-year-old status postnormal spontaneous vaginal delivery, induction of labor secondary to gestational hypertension. Patient is doing well with noted elevated blood pressures on this post day #1. Will monitor blood pressures today into tomorrow and plan discharge home tomorrow pending blood pressures
[2024-01-08 20:11] VITALS: RESP 16
[2024-01-09 08:17] VITALS: BP 143/87; PULSE 81; TEMP 97.9
--- NOTE | 2024-01-09 09:33 | P.DS ---
Providers Date of admission: 01/07/24 06:00 Expected date of discharge: 01/09/24 Attending physician: Cathi Saini Primary care physician: Stated None - Discharge Diagnosis(es) (1) 37 or more weeks gestation of Current Visit: Yes Status: Acute (2) Gestational HTN Current Visit: Yes Status: Acute (3) Obstetric vaginal laceration with second degree perineal laceration Current Visit: No Status: Acute (4) Status post vaginal delivery Current Visit: No Status: Acute Hospital Course: This is a 33-year-old G5 now P3114 that presented to labor and delivery on 01/07 for scheduled induction of labor at 37-2/7 weeks secondary to gestational hypertension on labetalol. Patient had noted worsening blood pressures in the office and induction of labor was scheduled. Patient was admitted to labor and delivery and Pitocin induction of labor was begun per hospital protocol. Patient underwent amniotomy and clear fluid was obtained. Patient did request epidural soon after amniotomy secondary to discomfort. Epidural was placed without difficulty by the anesthesia department. Patient made good progress toward complete. Once patient was completely dilated she began pushing and had a normal spontaneous vaginal delivery of a viable male at 1208, weight of 7 pounds 6 ounces. Apgars of 9 and 10 at 1 and 5 minutes respectively. Patient did sustain a second-degree midline laceration which was repaired in the usual fashion. Patient has done well . She has had a few elevated pressures and was treated with labetalol x 2. Patient does desire discharge home. Patient is comfortable with labetalol at home and monitoring her blood pressures. Patient is encouraged to make an appointment in 1 week for a routine blood pressure check and evaluation of labetalol dosing/need. Patient Condition at Discharge: Good Plan - Discharge Summary New Discharge Prescriptions: No Action Iron 18 mg PO DAILY Labetalol [Trandate] 100 mg PO BID Pnv,Calcium 72/Iron/Folic Acid [Westab Plus Tablet] 1 tab PO DAILY Discharge Medication List Iron 18 mg PO DAILY 08/04/17 [History] Labetalol [Trandate] 100 mg PO BID 12/19/23 [History] Pnv,Calcium 72/Iron/Folic Acid [Westab Plus Tablet] 1 tab PO DAILY 12/19/23 [History] Follow up Appointment(s)/Referral(s): Cathi Saini DO [Doctor of Osteopathic Medicine] - 1 Week Patient Instructions/Handouts: Vaginal Delivery (GEN), Vaginal Delivery (DC) Activity/Diet/Wound Care/Special Instructions: No tub baths or intercourse until 6 weeks post . [id number] ibuprofen 600 mg 3 tablets every 6 hours as needed for pain. Patient is to monitor blood pressures. Patient is given a prescription for labetalol 100 mg to be taken twice daily. Patient is to call the office to make a blood pressure check appointment in 1 week. Discharge Disposition: HOME SELF-CARE
== END 2024-01-09 13:00 | disposition home or self-care (01) | DRG 807 ==
LOC: 4FBP 06:00
PROVIDERS: ADMIT Obstetrics & Gynecology Obstetrics; ATTEND Obstetrics & Gynecology Obstetrics
PROC: 10E0XZZ Delivery of Products of Conception, External Approach (ICD-10-PCS; principal; 2024-01-07)
PROC: 0KQM0ZZ Repair Perineum Muscle, Open Approach (ICD-10-PCS; 2024-01-07)
PROC: 3E033VJ Introduction of Other Hormone into Peripheral Vein, Percutaneous Approach (ICD-10-PCS; 2024-01-07)
PROC: 10907ZC Drainage of Amniotic Fluid, Therapeutic from Products of Conception, Via Natural or Artificial Opening (ICD-10-PCS; 2024-01-07)
DX: O13.4 Gestational [pregnancy-induced] hypertension without significant proteinuria, complicating childbirth (principal); Z37.0 Single live birth; Z3A.37 37 weeks gestation of pregnancy; O70.1 Second degree perineal laceration during delivery; O99.02 Anemia complicating childbirth; D64.9 Anemia, unspecified; Z79.899 Other long term (current) drug therapy
CPT/HCPCS: 85025; 86850; 86900; 86901